=== PATIENT | female | born 2000 | race Caucasian/White ===

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

== ENCOUNTER 2022-06-22 05:55 | Observation (INO) | payer OTHER, SELFPAY ==
[2022-06-22] VITALS (7 sets, daily range): BP systolic 112–178; BP diastolic 56–110; PULSE 56–83; RESP 16–18; TEMP 36.3–37.4; O2SAT 96–100; BMI 19.2; BMI 20.3
--- NOTE | 2022-06-22 06:11 | ED.VIS.GI ---
HPI <Dr. Almas Payan MD - Last Filed: 06/22/22 07:06> HPI - GI History of Present Illness Chief Complaint: Nausea/Vomiting/Diarrhea Informant: patient and family Abdominal Pain/Flank Pain Onset: Days (several) Context: Gradual Onset Timing: Continuous Quality: Aching Location: - (pelvis, more on right) Current Severity: Moderate Maximum Severity: Moderate Worsened by: Nothing Relieved by: Nothing Nausea/Vomiting/Emesis GI Symptom: Positive for Nausea and Vomiting Onset: Today Quality: Positive for Nonbilious; Negative for Blood streaks, Coffee ground or Hematemesis Severity: Severe Diarrhea/Melena/Hematochezia GI Symptom: Positive for Diarrhea; Negative for Melena or Hematochezia Onset: Days (couple) Stool Quality: Positive for Loose Severity: Moderate Associated Symptoms Associated Symptoms: Negative for Dysuria, Frequency, Hematuria or Urgency Narrative Narrative: Patient presents saying that she is having pelvic pain, vomiting, and diarrhea because I am ovulating. She states this has been going on for years, every month. It has been more severe since October. She has seen her primary doctor about this. Recently she is having another episode, and states this morning since she has been vomiting, all of her symptoms are more severe than usual but they are otherwise the same. She gets these episodes in between her menstrual cycles every single month. She occasionally gets some nosebleeds when she is vomiting, but nothing this morning, and she denies any hematemesis or hematochezia otherwise. She denies any fevers or chills. No urinary symptoms, no discharge, no risk of STI - is monogamous w/ her boyfriend. She states when she gets these painful episodes, they tend to alternate sides, right now it is more prominent on the right. Discomfort radiates into her low back. [facility] <Dr. Almas Payan MD - Last Filed: 06/22/22 07:06> [facility] Medical History Menstrual cycle problem Home Medications epinephrine 0.15 mg/0.15 mL auto-injector (for 33 to 66 lb patients) 0.15 mg (0.15 mL) IM X1 ##2 03/15/14 [Rx Last Taken Unknown] ondansetron 4 mg disintegrating tablet 4 mg PO Q6H PRN nausea and vomiting #10 tabs 12/31/21 [Rx Last Taken Unknown] Allergy/AdvReac Type Severity Reaction Status Date / Time No Known Allergies Allergy Verified 06/22/22 06:00 Social History Smoking Status: Never smoker ROS <Dr. Almas Payan MD - Last Filed: 06/22/22 07:06> ROS ED Constitutional Constitutional ED: Denies chills or fever(s) Eyes Eyes: Denies change in vision or diplopia ENT ENT ED: Denies rhinorrhea or sore throat Cardiovascular Cardiovascular: Denies chest pain or palpitations Respiratory/Chest Respiratory/Chest: Denies cough or dyspnea Gastrointestinal Gastrointestinal: Reports as per HPI, abdominal pain, diarrhea, nausea and vomiting Genitourinary Genitourinary ED: Denies dysuria or hematuria Musculoskeletal Musculoskeletal: Reports back pain; Denies neck pain Integumentary Denies abscess or rash Neurologic Neurologic: Denies headache(s), paresthesias or weakness Psychiatric Psychiatric: Reports anxiety; Denies suicidal thoughts EXAM <Dr. Almas Payan MD - Last Filed: 06/22/22 07:06> Physical Exam Const Vital Signs: 06/22/22 05:56 06/22/22 08:13 06/22/22 10:19 Temperature 97.3 F L Temperature Source Temporal Pulse Rate 83 66 Respiratory Rate 18 18 16 Blood Pressure 178/110 H 114/62 Blood Pressure Mean 132 79 Pulse Ox 100 100 Oxygen Delivery Method Room Air Room Air 06/22/22 12:35 Temperature Temperature Source Pulse Rate 67 Respiratory Rate 18 Blood Pressure 136/64 H Blood Pressure Mean 88 Pulse Ox 96 Oxygen Delivery Method Room Air Positive well nourished and well developed Constitutional Narrative: uncomfortable General Appearance ED: well developed HEENT Reports moist mucous membranes normocephalic and atraumatic Eyes PERRL and EOMs intact bilaterally Neck full ROM and supple Resp normal respiratory effort and clear to auscultation bilaterally Cardio regular rate, regular rhythm and no murmurs Rate: Negative for tachycardic GI non-distended GI Narrative: Diffusely tender Auscultation: normoactive bowel sounds Palpation: soft; Negative for guarding or rebound tenderness present Back/Spine no CVA tenderness General Back: other FROM Extremity normal to inspection General Extremety ED: Negative for edema, pulses abnormal or tenderness General Extremity: Negative for edema or pulses abnormal Neuro oriented x3, CN's II-XII intact bilaterally, no sensory deficits noted and gait normal Sensorium / Orientation: awake and alert Motor Exam: strength 5/5 throughout Psych thought process normal Psych Narrative: Very anxious and somewhat agitated Skin no rashes or lesions noted and no wounds <Dr. Migel Rivas DO - Last Filed: 06/22/22 14:40> Physical Exam Const Vital Signs: 06/22/22 05:56 06/22/22 08:13 06/22/22 10:19 Temperature 97.3 F L Temperature Source Temporal Pulse Rate 83 66 Respiratory Rate 18 18 16 Blood Pressure 178/110 H 114/62 Blood Pressure Mean 132 79 Pulse Ox 100 100 Oxygen Delivery Method Room Air Room Air 06/22/22 12:35 Temperature Temperature Source Pulse Rate 67 Respiratory Rate 18 Blood Pressure 136/64 H Blood Pressure Mean 88 Pulse Ox 96 Oxygen Delivery Method Room Air MDM <Dr. Almas Payan MD - Last Filed: 06/22/22 07:06> MDM MDM Narrative Medical decision making narrative: Initially started by giving the patient IV fluids, Reglan, and Toradol in addition to obtaining labs and a serum and reevaluating her. She has a significant leukocytosis at 21. Differential here includes demargination due to stress and discomfort, especially given this has been a chronically recurring problem, but also the possibility of ovarian torsion or tubo-ovarian abscess, and less likely, appendicitis. I think she should have an ultrasound first. Her is negative. PID in differential but thought to be less likely, we will send a GC/Chlam. She presents just prior to the morning shift, and when ultrasound gets here, a transvaginal ultrasound will be obtained. She is doing a little better after the medications. Lab Data Attestation: I reviewed the patient's lab results. Labs: Laboratory Results - last 24 hr 06/22/22 06/22/22 06/22/22 06:10 06:10 06:10 WBC 21.0 H RBC 4.51 Hgb 12.8 Hct 38.5 MCV 85.4 MCH 28.4 MCHC 33.2 RDW Std Deviation 38.0 RDW Coeff of Eugenio 12.3 Plt Count 381 MPV 8.9 Immature Gran % (Auto) 0.500 Neut % (Auto) 69.2 Lymph % (Auto) 19.4 [place] % (Auto) 5.9 Eos % (Auto) 4.5 Baso % (Auto) 0.5 Absolute Neuts (auto) 14.6 H Absolute Lymphs (auto) 4.07 Nucleated RBC % 0 Sodium 137 Potassium 3.3 L Chloride 103 Carbon Dioxide 20.0 L Anion Gap 14 BUN 14 Creatinine 0.92 Estim Creat Clear Calc 69.41 Est GFR (MDRD) Af Amer 100 Est GFR (MDRD) Non-Af 83 BUN/Creatinine Ratio 15.2 Glucose 180 H Calcium 9.4 Total Bilirubin Direct Bilirubin AST ALT Alkaline Phosphatase Total Protein Albumin Globulin Serum , Qual NEGATIVE Urine Color Urine Clarity Urine pH Ur Specific [place] Urine Protein Urine Glucose (UA) Urine Ketones Urine Occult Blood Urine Nitrite Urine Bilirubin Urine Urobilinogen Ur Leukocyte Esterase Urine RBC Urine WBC Ur Squamous Epith Cells Urine Bacteria Urine Mucus Chlamydia DNA (ALFREDO) N.gonorrhoeae DNA (ALFREDO) 06/22/22 06/22/22 06/22/22 06:10 10:00 10:00 WBC RBC Hgb Hct MCV MCH MCHC RDW Std Deviation RDW Coeff of Eugenio Plt Count MPV Immature Gran % (Auto) Neut % (Auto) Lymph % (Auto) [place] % (Auto) Eos % (Auto) Baso % (Auto) Absolute Neuts (auto) Absolute Lymphs (auto) Nucleated RBC % Sodium Potassium Chloride Carbon Dioxide Anion Gap BUN Creatinine Estim Creat Clear Calc Est GFR (MDRD) Af Amer Est GFR (MDRD) Non-Af BUN/Creatinine Ratio Glucose Calcium Total Bilirubin 0.80 Direct Bilirubin 0.18 AST 12 L ALT 15 Alkaline Phosphatase 53 Total Protein 7.9 Albumin 4.5 Globulin 3.4 Serum , Qual Urine Color Yellow Urine Clarity Clear Urine pH 7.0 Ur Specific [place] 1.010 Urine Protein 30 H Urine Glucose (UA) Normal Urine Ketones 150 A* Urine Occult Blood 10 H Urine Nitrite Negative Urine Bilirubin Negative Urine Urobilinogen 1 H Ur Leukocyte Esterase Negative Urine RBC 0 SEEN Urine WBC 0 SEEN Ur Squamous Epith Cells 0-5 SEEN Urine Bacteria 0 SEEN Urine Mucus 0 SEEN Chlamydia DNA (ALFREDO) Cancelled N.gonorrhoeae DNA (ALFREDO) Cancelled Radiography Diagnostic Testing: Clinical Impression(s) from Imaging Studies Transvaginal US 06/22/22 06:31 IMPRESSION: Bilateral peripherally located subcentimeter ovarian cysts, in the appropriate clinical setting may reflect polycystic ovarian disease. Electronically Signed: Maday Antoine MD at 8:10 EDT , Abdomen/Pelvis CT 06/22/22 07:46 IMPRESSION: Pericholecystic fluid, may be secondary to recent intravenous rehydration, however cannot exclude cholecystitis recommend right upper quadrant ultrasound for further evaluation. Electronically Signed: Maday Antoine MD at 9:50 EDT , Gallbladder Ultrasound 06/22/22 09:56 IMPRESSION: Gallbladder wall thickening and pericholecystic fluid, may be reactive however cannot exclude cholecystitis. Electronically Signed: Maday Antoine MD at 11:09 EDT , <Dr. Migel Rivas, DO - Last Filed: 06/22/22 14:40> [facility] MDM Narrative Medical decision making narrative: Initially started by giving the patient IV fluids, Reglan, and Toradol in addition to obtaining labs and a serum and reevaluating her. She has a significant leukocytosis at 21. Differential here includes demargination due to stress and discomfort, especially given this has been a chronically recurring problem, but also the possibility of ovarian torsion or tubo-ovarian abscess, and less likely, appendicitis. I think she should have an ultrasound first. Her is negative. PID in differential but thought to be less likely, we will send a GC/Chlam. She presents just prior to the morning shift, and when ultrasound gets here, a transvaginal ultrasound will be obtained. She is doing a little better after the medications. Care of patient turned over to me awaiting ultrasound results of pelvis. This was read by radiology as free fluid within the pelvis and small cysts in both ovaries which could be related to PCOS. Patient continued to complain of pain and nausea especially at the right lower quadrant therefore CT scan of the abdomen pelvis was ordered which showed pericholecystic fluid and a thickened gallbladder wall as well as fluid in the pelvis. Radiology recommended ultrasound of the gallbladder which was performed. Radiology read this as thickened gallbladder wall with pericholecystic fluid but no gallstones and no dilated bile ducts. I did do a pelvic exam on the patient and she had some creamy white discharge and we did send off GC and chlamydia as well as a wet prep. I had patient evaluated by general surgery Dr. Thomas who did not believe that patient's exam and presentation was consistent with cholecystitis. LFTs were normal. Patient still pending GC and chlamydia results. Patient does have remote history of chlamydia at the beginning of the year. Case was discussed with PLACEMENT COORDINATOR on-call as patient continues to have intractable nausea and vomiting. Patient was started on Rocephin and Zithromax IV. At this point I suspect possibly PID as the etiology of her symptoms. Patient will be admitted for IV antibiotics and symptom control. Patient seen by Dr. Julian in the emergency department. Lab Data Labs: Laboratory Results - last 24 hr 06/22/22 06/22/22 06/22/22 06:10 06:10 06:10 WBC 21.0 H RBC 4.51 Hgb 12.8 Hct 38.5 MCV 85.4 MCH 28.4 MCHC 33.2 RDW Std Deviation 38.0 RDW Coeff of Eugenio 12.3 Plt Count 381 MPV 8.9 Immature Gran % (Auto) 0.500 Neut % (Auto) 69.2 Lymph % (Auto) 19.4 [place] % (Auto) 5.9 Eos % (Auto) 4.5 Baso % (Auto) 0.5 Absolute Neuts (auto) 14.6 H Absolute Lymphs (auto) 4.07 Nucleated RBC % 0 Sodium 137 Potassium 3.3 L Chloride 103 Carbon Dioxide 20.0 L Anion Gap 14 BUN 14 Creatinine 0.92 Estim Creat Clear Calc 69.41 Est GFR (MDRD) Af Amer 100 Est GFR (MDRD) Non-Af 83 BUN/Creatinine Ratio 15.2 Glucose 180 H Calcium 9.4 Total Bilirubin Direct Bilirubin AST ALT Alkaline Phosphatase Total Protein Albumin Globulin Serum , Qual NEGATIVE Urine Color Urine Clarity Urine pH Ur Specific [place] Urine Protein Urine Glucose (UA) Urine Ketones Urine Occult Blood Urine Nitrite Urine Bilirubin Urine Urobilinogen Ur Leukocyte Esterase Urine RBC Urine WBC Ur Squamous Epith Cells Urine Bacteria Urine Mucus Chlamydia DNA (ALFREDO) N.gonorrhoeae DNA (ALFREDO) 06/22/22 06/22/22 06/22/22 06:10 10:00 10:00 WBC RBC Hgb Hct MCV MCH MCHC RDW Std Deviation RDW Coeff of Eugenio Plt Count MPV Immature Gran % (Auto) Neut % (Auto) Lymph % (Auto) [place] % (Auto) Eos % (Auto) Baso % (Auto) Absolute Neuts (auto) Absolute Lymphs (auto) Nucleated RBC % Sodium Potassium Chloride Carbon Dioxide Anion Gap BUN Creatinine Estim Creat Clear Calc Est GFR (MDRD) Af Amer Est GFR (MDRD) Non-Af BUN/Creatinine Ratio Glucose Calcium Total Bilirubin 0.80 Direct Bilirubin 0.18 AST 12 L ALT 15 Alkaline Phosphatase 53 Total Protein 7.9 Albumin 4.5 Globulin 3.4 Serum , Qual Urine Color Yellow Urine Clarity Clear Urine pH 7.0 Ur Specific [place] 1.010 Urine Protein 30 H Urine Glucose (UA) Normal Urine Ketones 150 A* Urine Occult Blood 10 H Urine Nitrite Negative Urine Bilirubin Negative Urine Urobilinogen 1 H Ur Leukocyte Esterase Negative Urine RBC 0 SEEN Urine WBC 0 SEEN Ur Squamous Epith Cells 0-5 SEEN Urine Bacteria 0 SEEN Urine Mucus 0 SEEN Chlamydia DNA (AL[place]EDO) Cancelled N.gonorrhoeae DNA (ALFREDO) Cancelled Radiography Diagnostic Testing: Clinical Impression(s) from Imaging Studies Transvaginal US 06/22/22 06:31 IMPRESSION: Bilateral peripherally located subcentimeter ovarian cysts, in the appropriate clinical setting may reflect polycystic ovarian disease. Electronically Signed: Maday Antoine MD at 8:10 EDT , Abdomen/Pelvis CT 06/22/22 07:46 IMPRESSION: Pericholecystic fluid, may be secondary to recent intravenous rehydration, however cannot exclude cholecystitis recommend right upper quadrant ultrasound for further evaluation. Electronically Signed: Maday Antoine MD at 9:50 EDT , Gallbladder Ultrasound 06/22/22 09:56 IMPRESSION: Gallbladder wall thickening and pericholecystic fluid, may be reactive however cannot exclude cholecystitis. Electronically Signed: Maday Antoine MD at 11:09 EDT , Discharge Plan Triage Chief Complaint: Nausea/Vomiting/Diarrhea Other Complaint: Abd Pain ED Provider: Almas Payan Dx/Rx/DC Orders Clinical Impression: Abdominal pain, Intractable vomiting with nausea Prescriptions: No Action epinephrine 0.15 MG syringe 0.15 mg IM X1 Qty: 2 3RF Rx Instructions: Use if child stung by wasp, bee or yellow jacket. Must carry at all times. ondansetron 4 mg tablet,disintegrating 4 mg PO Q6H PRN (Reason: nausea and vomiting) Qty: 10 0RF Primary Care Provider: Care Physician,No Primary Referrals: Jamilah Madden MD [Non-Staff] - Disposition Disposition: Acute Care Hospital [facility] [place] [facility]
[2022-06-22] MEDS: 0.9% Normal Saline 1,000 ML 1000 ML IV (06:17)
[2022-06-22] MEDS: Metoclopramide 10 MG/2 ML Vial 5 MG IV (06:17)
[2022-06-22] MEDS: Ketorolac 30 MG/ML Syringe IV (06:19)
[2022-06-22 06:27] LABS: Absolute Lymphocyte Count 4.07 X10^3/uL (0.83-4.51); Absolute Neutrophil Count 14.6 X10^3/uL (2.0-7.7); Basophil% 0.5 % (0-1); Eosinophil# 0.94 X10^3/uL; Eosinophils% 4.5 % (0-5); Hematocrit 38.5 % (37-47); Hemoglobin 12.8 g/dL (12.0-15.0); Lymphocyte # 4.07 X10^3/ul (0.83-4.51); Lymphocyte % 19.4 % (19-41); Mean Corp Hgb Conc 33.2 g/dL (32-36); Mean Corpuscular Hgb 28.4 pg (27.0-32.0); Mean Corpuscular Volume 85.4 fL (81-99); Mean Platelet Vol. 8.9 fl (6.2-12.0); Monocyte# 1.24 X10^3/uL; Monocyte% 5.9 % (0-10); NRBC Flagged by Analyzer 0 % (0-5); Neutrophil # 14.55 X10^3/uL (2.7-7.7); Neutrophil % 69.2 % (47-70); Platelet Count 381 K/mm3 (150-450); RBC Distribution Width CV 12.3 % (11.6-14.6); Red Blood Count 4.51 M/mm3 (4.2-5.4)
--- NOTE | 2022-06-22 06:31 | US_ITS ---
STUDY: ULTRASOUND TRANSVAGINAL CLINICAL: Female, 21 years old. R pelvic pain, eval for torsion TECHNIQUE: Transvaginal COMPARISON: None. FINDINGS: Normal uterine size measuring 7.9 cm in maximal craniocaudal dimension. There are no myometrial masses. Normal endometrial thickness measuring 10.3 mm. There are no endometrial masses, and there is no fluid in the endometrial cavity. Normal uterine cervix. Normal right ovary, measuring 3.8 x 2.6 x 4.1 cm. There are several peripherally located subcentimeter cysts. Normal left ovary, measuring 3.5 x 3.9 x 2.5 cm. There are multiple subcentimeter peripherally located cysts. There is free fluid in the pelvis. US/Transvaginal Non- IMPRESSION: Bilateral peripherally located subcentimeter ovarian cysts, in the appropriate clinical setting may reflect polycystic ovarian disease. Electronically Signed: Maday Antoine MD at 8:10 EDT ,
[2022-06-22 06:44] LABS: Anion Gap 14 (5-15); BUN 14 mg/dL (7-18); BUN/Creat Ratio 15.2 RATIO (10-20); Calcium,Total 9.4 mg/dL (8.5-10.1); Chloride 103 mmol/L (98-107); Creatinine, Serum 0.92 mg/dL (0.55-1.02); EST Glomerular Filtration Rate 83 mL/min (>60); Est Glom Filt Rate - Afr Amer 100 mL/min (>60); Estimated Creatinine Clearance 69.41 ml/min; Glucose 180 mg/dL (74-106); Potassium 3.3 mmol/L (3.5-5.1); Sodium Level 137 mmol/L (136-145)
[2022-06-22 07:00] LABS: Internal QC Validated? YES +Cl - CLEAR BKGD; Pregnancy, Serum, hCG Quali. NEGATIVE Negative
--- NOTE | 2022-06-22 07:46 | CT_ITS ---
STUDY: CT ABDOMEN AND PELVIS WITH CONTRAST REASON FOR EXAM: Female, 21 years old. Abdominal pain RADIATION DOSAGE (If Supplied By Facility): CTDIvol = ( 14.11 ) mGy, DLP = ( 254.33 ) mGycm TECHNIQUE: Transaxial images were obtained from the dome of the diaphragm to the symphysis pubis without oral contrast. Oral and amp; IV Gastrografin and amp; 100mL Isovue-300 was administered. Sagittal and coronal images were reconstructed. Individualized dose optimization techniques were used for this CT. COMPARISON: Pelvic ultrasound dated 06/22/2022 FINDINGS: The visualized lung bases are unremarkable. The visualized portions of the heart are within normal limits. There is periportal edema. The gallbladder is incompletely distended. There is pericholecystic fluid. Normal spleen. Normal pancreas. Normal bilateral adrenal glands. There is a too small to characterize low-attenuation focus within the right kidney which may reflect a cyst. Normal left kidney. Normal visualized stomach. Normal small intestine. Normal colon. There is non-visualization of the appendix. Normal abdominal aorta. Normal inferior vena cava. Normal retroperitoneum. There is free fluid within the pelvis which may be physiologic. Normal urinary bladder. Normal abdominal wall. Normal osseous structures. CT/Abdomen/Pelvis WITH Contrast IMPRESSION: Pericholecystic fluid, may be secondary to recent intravenous rehydration, however cannot exclude cholecystitis recommend right upper quadrant ultrasound for further evaluation. Electronically Signed: Maday Antoine MD at 9:50 EDT ,
[2022-06-22] MEDS: Ondansetron 4 MG/2 ML Vial IV (08:10)
--- NOTE | 2022-06-22 09:56 | US_ITS ---
STUDY: ABDOMINAL ULTRASOUND - RIGHT UPPER QUADRANT REASON FOR VISIT: Female, 21 years old abdominal pain TECHNIQUE: Ultrasound evaluation of the right upper quadrant was performed with real-time and static grover-scale imaging. TECHNICAL QUALITY: Adequate. COMPARISON: CT dated 06/22/2022 FINDINGS: Liver: The liver measures 13.9 cm. There is normal echogenicity of the liver. The bile ducts are within normal limits. There is hepatic color flow. The direction of portal flow is hepatopetal. There is no demonstrated mass lesion. Gallbladder: The gallbladder is incompletely distended. The gallbladder wall measures 5.9 mm. There is a negative sonographic Santos''s sign. There is pericholecystic fluid. There are no gallstones. Common Bile Duct (C.B.D.): The common bile duct measures 3.5 mm. Pancreas: Normal size of the head, body and tail of the pancreas. There is normal echogenicity of the pancreas. There is no demonstrated pancreatic mass or cyst. Right Kidney: Normal size of the right kidney. The right kidney measures 10.9 cm in length. Normal renal cortex. There is no demonstrated renal mass or cyst. There is no right hydronephrosis. US/Gallbladder IMPRESSION: Gallbladder wall thickening and pericholecystic fluid, may be reactive however cannot exclude cholecystitis. Electronically Signed: Maday Antoine MD at 11:09 EDT ,
[2022-06-22 10:11] LABS: Bacteria 0 SEEN /hpf (None Seen); Mucous, Urine 0 SEEN /hpf (<or=2+); Red Blood Cells-Urine 0 SEEN /hpf (0-5); White Blood Cells 0 SEEN /hpf (0-5)
[2022-06-22 10:12] LABS: Glucose, Dipstick Normal (Normal); Leukocyte Esterase-Dipstick Negative /ul (Negative); Nitrite-Dipstick Negative (Negative); Occult Blood-Urine 10 /ul (Negative); Protein-Dipstick 30 mg/dl (Negative); Urine Bilirubin Dipstick Negative (Negative); Urine Clarity Clear (Clear); Urine Urobilinogen 1 mg/dl (Normal)
[2022-06-22 10:31] LABS: Ketone-Dipstick 150 mg/dl (Negative)
[2022-06-22 10:32] LABS: Color, Urine Yellow (Yellow)
[2022-06-22 11:11] LABS: Squamous Epithelial Cells - UA 0-5 SEEN /hpf (5-10)
[2022-06-22] MEDS: Ceftriaxone 1 GM/50 ML BAG IV (11:35)
--- NOTE | 2022-06-22 12:57 | EX.PCM.CON.S ---
Assessment & Plan Assessment/Plan (1) Abdominal pain: (2) Thickening of wall of gallbladder with pericholecystic fluid: PLAN: Plan Did review CT abdomen pelvis as well as gallbladder ultrasound. Patient symptoms do not fit with gallbladder disease. Discussed with patient and her mom that we could get a HIDA scan to officially rule it out however patient has been having no issues with eating prior to this morning and denies any right upper quadrant pain after eating fatty or greasy foods which she has had within the last week. Patient currently says her pain is improving she only had Toradol upon coming in and per patient and mother her previous episodes are similar and they have resolved with antibiotics and currently her pain is 4/10. No plans for any acute surgical intervention. Patient's GC and Chlamydia are pending. Patient is currently getting antibiotics for this. Jerica Thomas M.D. Pager: [phone] [facility] [address] [place] [address], [facility], [address] [place] [id number] Office: [phone] HPI Consult Data Date of Consult: 06/23/22 HPI Narrative HPI Narrative: AMANDA VAZQUEZ, is a 21 F who presents to the ER due to 2 mid abdominal pain which started at 530 this morning. Patient states for 2 weeks previous he has had abdominal pain rates it a 6/10 at that time this morning was a 10/10. Patient is also accompanied by her mother. States she had a hamburger last night and she has had previously been tolerating diet without any issues denies any nausea or vomiting other than this morning. Patient is sexually active did have some vaginal creamish discharge per ED waiting on G/C. Mom and patient report having these episodes about 3-4 times over the past year previously she was diagnosed with a UTI and would improve with antibiotics and some Zofran and she states this episode is similar. Patient did have sex the day before yesterday with her boyfriend-patient denies any burning with urination or vaginal discharge. CT abdomen pelvis was done which showed some free fluid in the pelvis as well as some near the gallbladder recommended ultrasound. Ultrasound not show any gallstones called a thickened gallbladder wall And pericholecystic fluid but said it may be reactive but cannot rule out cholecystitis. Patient white count of 21 with a left shift, LFTs are currently pending?(addendum: LFTs within normal limits), patient's UA did not show any obvious UTI [facility] Medical History Menstrual cycle problem Home Medications epinephrine 0.15 mg/0.15 mL auto-injector (for 33 to 66 lb patients) 0.15 mg (0.15 mL) IM X1 ##2 03/15/14 [Rx Last Taken Unknown] ondansetron 4 mg disintegrating tablet 4 mg PO Q6H PRN nausea and vomiting #10 tabs 12/31/21 [Rx Last Taken Unknown] Allergy/AdvReac Type Severity Reaction Status Date / Time No Known Allergies Allergy Verified 06/22/22 06:00 Social History Smoking Status: Current every day smoker tobacco type: e-cigarettes ROS Constitutional Constitutional: Reports anorexia; Denies fever(s) Cardiovascular Cardiovascular: Denies chest pain Respiratory/Chest Respiratory/Chest: Denies cough Gastrointestinal Gastrointestinal: Reports abdominal pain, nausea and vomiting; Denies constipation Genitourinary Genitourinary: Denies dysuria Integumentary Integumentary: Denies jaundice Neurologic Neurologic: Denies weakness Physical Exam Const alert, oriented x3 and no apparent distress HEENT normocephalic and head/scalp atraumatic Resp normal respiratory effort Cardio regular rate GI soft to palpation; Negative for non-distended Palpation: tender epigastric and periumbilical; Negative for guarding Extremity no clubbing, cyanosis or edema Neuro CN's II-XII intact bilaterally Psych mental status grossly normal Lab / Micro Data Result Diagrams: 06/23/22 06:09 06/23/22 06:09 Labs: Laboratory Results - last 24 hr 06/22/22 06:10: WBC 21.0 H, RBC 4.51, Hgb 12.8, Hct 38.5, MCV 85.4, MCH 28.4, MCHC 33.2, RDW Std Deviation 38.0, RDW Coeff of Eugenio 12.3, Plt Count 381, MPV 8.9, Immature Gran % (Auto) 0.500, Neut % (Auto) 69.2, Lymph % (Auto) 19.4, [place] % (Auto) 5.9, Eos % (Auto) 4.5, Baso % (Auto) 0.5, Absolute Neuts (auto) 14.6 H, Absolute Lymphs (auto) 4.07, Nucleated RBC % 0 06/22/22 06:10: Sodium 137, Potassium 3.3 L, Chloride 103, Carbon Dioxide 20.0 L, Anion Gap 14, BUN 14, Creatinine 0.92, Estim Creat Clear Calc 69.41, Est GFR (MDRD) Af Amer 100, Est GFR (MDRD) Non-Af 83, BUN/Creatinine Ratio 15.2, Glucose 180 H, Calcium 9.4 06/22/22 06:10: Serum , Qual NEGATIVE 06/22/22 10:00: Urine Color Yellow, Urine Clarity Clear, Urine pH 7.0, Ur Specific [place] 1.010, Urine Protein 30 H, Urine Glucose (UA) Normal, Urine Ketones 150 A*, Urine Occult Blood 10 H, Urine Nitrite Negative, Urine Bilirubin Negative, Urine Urobilinogen 1 H, Ur Leukocyte Esterase Negative, Urine RBC 0 SEEN, Urine WBC 0 SEEN, Ur Squamous Epith Cells 0-5 SEEN, Urine Bacteria 0 SEEN, Urine Mucus 0 SEEN Micro: Microbiology 06/22/22 12:00 Interface Orders Wet Prep - Final Radiology Impression Transvaginal US 06/22/22 06:31 IMPRESSION: Bilateral peripherally located subcentimeter ovarian cysts, in the appropriate clinical setting may reflect polycystic ovarian disease. Electronically Signed: Maday Antoine MD at 8:10 EDT Reading Location ID and State: [facility] / [place] Tel , Service support , Abdomen/Pelvis CT 06/22/22 07:46 IMPRESSION: Pericholecystic fluid, may be secondary to recent intravenous rehydration, however cannot exclude cholecystitis recommend right upper quadrant ultrasound for further evaluation. Electronically Signed: Maday Antoine MD at 9:50 EDT , Gallbladder Ultrasound 06/22/22 09:56 IMPRESSION: Gallbladder wall thickening and pericholecystic fluid, may be reactive however cannot exclude cholecystitis. Electronically Signed: Maday Antoine MD at 11:09 EDT , Charges/Coding Visit Charges Inpatient E&M: 17572 Init Hosp L3
[2022-06-22 13:24] LABS: AST(SGOT) 12 U/L (15-37); Alanine Aminotransfer ALT/SGPT 15 U/L (13-56); Albumin, Serum 4.5 g/dL (3.2-5.0); Alkaline Phosphatase 53 U/L (45-117); Bilirubin, Direct 0.18 mg/dL (0.00-0.30); Globulin 3.4 g/dL (2.2-4.2); Protein, Total 7.9 g/dL (6.4-8.2)
--- NOTE | 2022-06-22 14:40 | NURSING ---
MED SURG OBS MARCHOMERO ABD PAIN, INTRACTABLE NAUSEA, VOMITING
--- NOTE | 2022-06-22 14:43 | PCM.HP.STD ---
HPI - General HPI Narrative AMANDA VAZQUEZ, is a 21 F who presents with nausea vomiting and diarrhea for the past day. She has abdominal pain and upon CT scan and pelvic ultrasound has free fluid in the cul-de-sac, thickening around the gallbladder and leukocytosis of 21,000. Patient is sexually active and pelvic cultures are pending. She is having vaginal discharge and did not have cervical motion tenderness on exam but clinically there is a suspicion for PID. She is status post general surgery consult for gallbladder thickening which was not felt to be cholecystitis and unlikely to be the cause of her current symptoms it is felt per the surgeon. Patient states that she has felt warm but denies any known fever. Patient has had some refractory nausea and persistent pain. She does admit to daily marijuana use up to a bowl a day regularly and has not used in the last day and a half. She denies any other drug use. She admits to only 1 sexual partner at this time. [facility] Medical History Menstrual cycle problem Home Medications epinephrine 0.15 mg/0.15 mL auto-injector (for 33 to 66 lb patients) 0.15 mg (0.15 mL) IM X1 ##2 03/15/14 [Rx Last Taken Unknown] ondansetron 4 mg disintegrating tablet 4 mg PO Q6H PRN nausea and vomiting #10 tabs 12/31/21 [Rx Last Taken Unknown] Allergy/AdvReac Type Severity Reaction Status Date / Time No Known Allergies Allergy Verified 06/22/22 06:00 Social History Smoking Status: Never smoker ROS Review of Systems ROS Unobtainable: due to mental status and other Constitutional Constitutional: Reports systems reviewed and no addt'l complaints, except as documented, fatigue, malaise and weakness; Denies as per HPI, change in weight, fever(s) or other Eyes Eyes: Reports systems reviewed and no addt'l complaints, except as documented; Denies as per HPI, change in vision or other ENT HEENT: Reports systems reviewed and no addt'l complaints, except as documented Respiratory/Chest Respiratory/Chest: Reports systems reviewed and no addt'l complaints, except as documented Gastrointestinal Gastrointestinal: Reports systems reviewed and no addt'l complaints, except as documented and as per HPI Genitourinary Genitourinary: Reports as per HPI Musculoskeletal Musculoskeletal: Reports systems reviewed and no addt'l complaints, except as documented Neurologic Neurologic: Reports systems reviewed and no addt'l complaints, except as documented Psychiatric Psychiatric: Reports systems reviewed and no addt'l complaints, except as documented Endocrine Endocrinology: Reports systems reviewed and no addt'l complaints, except as documented Hematologic/Lymphatic Hematologic/Lymphatic: Reports systems reviewed and no addt'l complaints, except as documented Vital Signs Vital Signs Vital Signs: 06/22/22 05:56 06/22/22 08:13 06/22/22 10:19 Temperature 97.3 F L Temperature Source Temporal Pulse Rate 83 66 Respiratory Rate 18 18 16 Blood Pressure 178/110 H 114/62 Blood Pressure Mean 132 79 Pulse Ox 100 100 Oxygen Delivery Method Room Air Room Air 06/22/22 12:35 Temperature Temperature Source Pulse Rate 67 Respiratory Rate 18 Blood Pressure 136/64 H Blood Pressure Mean 88 Pulse Ox 96 Oxygen Delivery Method Room Air Weight Weight: 98 lb 8.746 oz Body Mass Index (BMI) 19.2 Physical Exam Const alert, oriented x3 and no apparent distress HEENT normocephalic Head and Scalp: atraumatic Eyes EOMs intact bilaterally and conjunctivae normal Neck full ROM, no lymphadenopathy, supple and thyroid normal General: trachea midline Lymph Lymphatic: no lymphadenopathy noted Resp normal respiratory effort, no retractions, no use of accessory muscles and clear to auscultation bilaterally Cardio regular rhythm GI normal to inspection, nondistended, normoactive bowel sounds, soft to palpation, non-distended and no masses Inspection: Negative for abdominal distention Palpation: tender other (generalized no rebound) Back/Spine no CVA tenderness Extremity normal to inspection Skin no rashes or lesions noted Neuro moves all extremities and deep tendon reflexes 2+ bilaterally Psych mental status grossly normal Results Lab / Micro Data Result Diagrams: 06/22/22 06:10 06/22/22 06:10 Labs: Laboratory Results - last 24 hr 06/22/22 06:10: WBC 21.0 H, RBC 4.51, Hgb 12.8, Hct 38.5, MCV 85.4, MCH 28.4, MCHC 33.2, RDW Std Deviation 38.0, RDW Coeff of Eugenio 12.3, Plt Count 381, MPV 8.9, Immature Gran % (Auto) 0.500, Neut % (Auto) 69.2, Lymph % (Auto) 19.4, [place] % (Auto) 5.9, Eos % (Auto) 4.5, Baso % (Auto) 0.5, Absolute Neuts (auto) 14.6 H, Absolute Lymphs (auto) 4.07, Nucleated RBC % 0 06/22/22 06:10: Sodium 137, Potassium 3.3 L, Chloride 103, Carbon Dioxide 20.0 L, Anion Gap 14, BUN 14, Creatinine 0.92, Estim Creat Clear Calc 69.41, Est GFR (MDRD) Af Amer 100, Est GFR (MDRD) Non-Af 83, BUN/Creatinine Ratio 15.2, Glucose 180 H, Calcium 9.4 06/22/22 06:10: Serum , Qual NEGATIVE 06/22/22 06:10: Total Bilirubin 0.80, Direct Bilirubin 0.18, AST 12 L, ALT 15, Alkaline Phosphatase 53, Total Protein 7.9, Albumin 4.5, Globulin 3.4 06/22/22 10:00: Urine Color Yellow, Urine Clarity Clear, Urine pH 7.0, Ur Specific [place] 1.010, Urine Protein 30 H, Urine Glucose (UA) Normal, Urine Ketones 150 A*, Urine Occult Blood 10 H, Urine Nitrite Negative, Urine Bilirubin Negative, Urine Urobilinogen 1 H, Ur Leukocyte Esterase Negative, Urine RBC 0 SEEN, Urine WBC 0 SEEN, Ur Squamous Epith Cells 0-5 SEEN, Urine Bacteria 0 SEEN, Urine Mucus 0 SEEN 06/22/22 10:00: Chlamydia DNA (ALFREDO) Cancelled, N.gonorrhoeae DNA (ALFREDO) Cancelled Micro: Microbiology 06/22/22 12:00 Interface Orders Wet Prep - Final Radiology Impression Transvaginal US 06/22/22 06:31 IMPRESSION: Bilateral peripherally located subcentimeter ovarian cysts, in the appropriate clinical setting may reflect polycystic ovarian disease. Electronically Signed: Maday Antoine MD at 8:10 EDT , Abdomen/Pelvis CT 06/22/22 07:46 IMPRESSION: Pericholecystic fluid, may be secondary to recent intravenous rehydration, however cannot exclude cholecystitis recommend right upper quadrant ultrasound for further evaluation. Electronically Signed: Maday Antoine MD at 9:50 EDT , Gallbladder Ultrasound 06/22/22 09:56 IMPRESSION: Gallbladder wall thickening and pericholecystic fluid, may be reactive however cannot exclude cholecystitis. Electronically Signed: Maday Antoine MD at 11:09 EDT , Assessment & Plan Assessment/Plan (1) Abdominal pain: (2) Intractable vomiting with nausea: (3) Thickening of wall of gallbladder with pericholecystic fluid: (4) PID (acute pelvic inflammatory disease): PLAN: Plan Admit for ceftriaxone 1 g every 24 hours and doxycycline 100 mg twice daily plus Flagyl 500 twice daily until tolerating p.o. and then will transition to oral therapy of doxycycline twice daily and Flagyl twice daily x14 days. Discussed marijuana use, discussed with ER physician recommend stool studies also due to diarrhea. If persistent symptoms not improved with IV antibiotics recommend GI consult.
[2022-06-22 15:40] LABS: Chlamydia Trachomatis by PCR Negative (Negative); Neisserai gonorrhoeae by PCR Negative (Negative); Probe Check PASS; Sample Adequacy Control PASS; Specimen Processing Control PASS
[2022-06-22] MEDS: KCL 20MEQ in 0.9% NS 20 MEQ/1,000 ML IV.SOLN. 125 MEQ IV (16:51)
[2022-06-22] MEDS: Doxycycline 100 MG CAPSULE PO ×2 (16:52→22:04)
[2022-06-22] MEDS: metroNIDAZOLE 500 MG Tablet PO (16:53)
[2022-06-23] MEDS: KCL 20MEQ in 0.9% NS 20 MEQ/1,000 ML IV.SOLN. 125 MEQ IV ×2 (00:18→09:21)
[2022-06-23 03:25] VITALS: BP 109/51; PULSE 68; RESP 16; TEMP 36.9; O2SAT 100
[2022-06-23 07:11] LABS: ALB/GLOB Ratio 1.2 RATIO (0.9-2.4); AST(SGOT) 8 U/L (15-37); Alanine Aminotransfer ALT/SGPT 15 U/L (13-56); Albumin, Serum 3.4 g/dL (3.2-5.0); Alkaline Phosphatase 41 U/L (45-117); Anion Gap 8 (5-15); BUN 7 mg/dL (7-18); BUN/Creat Ratio 13.9 RATIO (10-20); Calcium,Total 8.3 mg/dL (8.5-10.1); Chloride 109 mmol/L (98-107); EST Glomerular Filtration Rate 167 mL/min (>60); Est Glom Filt Rate - Afr Amer 201 mL/min (>60); Estimated Creatinine Clearance 129.99 ml/min; Globulin 2.8 g/dL (2.2-4.2); Glucose 80 mg/dL (74-106); Potassium 3.6 mmol/L (3.5-5.1); Protein, Total 6.2 g/dL (6.4-8.2); Sodium Level 138 mmol/L (136-145)
[2022-06-23 09:10] VITALS: BP 110/61; PULSE 70; RESP 16; TEMP 37; O2SAT 100
[2022-06-23] MEDS: Doxycycline 100 MG CAPSULE PO (09:21)
[2022-06-23] MEDS: metroNIDAZOLE 500 MG Tablet PO (09:21)
[2022-06-23] MEDS: Ceftriaxone 1 GM/50 mL Premix Q24 IV (09:22)
[2022-06-23 09:54] LABS: Absolute Lymphocyte Count 1.92 X10^3/uL (0.83-4.51); Absolute Neutrophil Count 8.4 X10^3/uL (2.0-7.7); Basophil# 0.04 X10^3/uL; Basophil% 0.4 % (0-1); Eosinophil# 0.11 X10^3/uL; Hematocrit 33.1 % (37-47); Hemoglobin 11.2 g/dL (12.0-15.0); Lymphocyte # 1.92 X10^3/ul (0.83-4.51); Lymphocyte % 16.9 % (19-41); Mean Corp Hgb Conc 33.8 g/dL (32-36); Mean Corpuscular Hgb 29.5 pg (27.0-32.0); Mean Corpuscular Volume 87.1 fL (81-99); Mean Platelet Vol. 9.7 fl (6.2-12.0); Monocyte# 0.85 X10^3/uL; Monocyte% 7.5 % (0-10); NRBC Flagged by Analyzer 0 % (0-5); Neutrophil # 8.38 X10^3/uL (2.7-7.7); Neutrophil % 73.8 % (47-70); Platelet Count 228 K/mm3 (150-450); RBC Distribution Width CV 12.7 % (11.6-14.6); RBC Distribution Width SD 40.3 fl (35.1-43.9); White Blood Count 11.4 K/mm3 (4.4-11.0)
--- NOTE | 2022-06-23 11:55 | PCM.PN.OB ---
Subjective Subjective no nausea or vomiting this morning tolerating po and oral meds Objective Data Objective Data Vital Signs: Vital Signs Temp Pulse Resp BP Pulse Ox O2 Del Method 98.6 F 70 16 110/61 100 Room Air 06/23/22 09:10 06/23/22 09:10 06/23/22 09:10 06/23/22 09:10 06/23/22 09:10 06/23/22 09:10 Oxygen Delivery Method Room Air Weight: 104 lb 4.8 oz Body Mass Index (BMI) 20.3 Intake & Output: Intake and Output for Last 24 Hours 06/21/22 06/22/22 06/23/22 23:59 23:59 23:59 Intake Total 1405 / 1405 Balance 1405 / 1405 Lab / Micro Data Result Diagrams: 06/23/22 06:09 06/23/22 06:09 Labs: Laboratory Results - last 24 hr 06/22/22 06:10: Total Bilirubin 0.80, Direct Bilirubin 0.18, AST 12 L, ALT 15, Alkaline Phosphatase 53, Total Protein 7.9, Albumin 4.5, Globulin 3.4 06/22/22 10:00: Chlamydia DNA (ALFREDO) Cancelled, N.gonorrhoeae DNA (ALFREDO) Cancelled 06/22/22 10:00: Chlam trachomat DNA PCR Negative, N.gonorrhoeae DNA (PCR) Negative 06/23/22 06:09: Sodium 138, Potassium 3.6, Chloride 109 H, Carbon Dioxide 21.0, Anion Gap 8, BUN 7, Creatinine 0.50 L, Estim Creat Clear Calc 129.99, Est GFR (MDRD) Af Amer 201, Est GFR (MDRD) Non-Af 167, BUN/Creatinine Ratio 13.9, Glucose 80, Calcium 8.3 L, Total Bilirubin 0.80, AST 8 L, ALT 15, Alkaline Phosphatase 41 L, Total Protein 6.2 L, Albumin 3.4, Globulin 2.8, Albumin/Globulin Ratio 1.2 06/23/22 06:09: WBC 11.4 H, RBC 3.80 L, Hgb 11.2 L, Hct 33.1 L, MCV 87.1, MCH 29.5, MCHC 33.8, RDW Std Deviation 40.3, RDW Coeff of Eugenio 12.7, Plt Count 228, MPV 9.7, Immature Gran % (Auto) 0.400, Neut % (Auto) 73.8 H, Lymph % (Auto) 16.9 L, [place] % (Auto) 7.5, Eos % (Auto) 1.0, Baso % (Auto) 0.4, Absolute Neuts (auto) 8.4 H, Absolute Lymphs (auto) 1.92, Nucleated RBC % 0 Micro: Microbiology 06/22/22 12:00 Interface Orders Wet Prep - Final ROS Review of Systems ROS Unobtainable: due to mental status and other Constitutional Constitutional: Reports systems reviewed and no addt'l complaints, except as documented; Denies as per HPI, fever(s) or other Eyes Eyes: Reports systems reviewed and no addt'l complaints, except as documented; Denies as per HPI, change in vision or other ENT HEENT: Reports systems reviewed and no addt'l complaints, except as documented Respiratory/Chest Respiratory/Chest: Reports systems reviewed and no addt'l complaints, except as documented Gastrointestinal Gastrointestinal: Reports systems reviewed and no addt'l complaints, except as documented and as per HPI Genitourinary Genitourinary: Reports as per HPI Musculoskeletal Musculoskeletal: Reports systems reviewed and no addt'l complaints, except as documented Neurologic Neurologic: Reports systems reviewed and no addt'l complaints, except as documented Psychiatric Psychiatric: Reports systems reviewed and no addt'l complaints, except as documented Endocrine Endocrinology: Reports systems reviewed and no addt'l complaints, except as documented Hematologic/Lymphatic Hematologic/Lymphatic: Reports systems reviewed and no addt'l complaints, except as documented Physical Exam Const alert, oriented x3 and no apparent distress HEENT normocephalic Head and Scalp: atraumatic Eyes EOMs intact bilaterally and conjunctivae normal Neck full ROM, no lymphadenopathy, supple and thyroid normal General: trachea midline Lymph Lymphatic: no lymphadenopathy noted Resp normal respiratory effort, no retractions, no use of accessory muscles and clear to auscultation bilaterally Cardio regular rhythm GI normal to inspection, nondistended, normoactive bowel sounds, soft to palpation, non-distended and no masses Inspection: Negative for abdominal distention Extremity normal to inspection Skin no rashes or lesions noted Psych mental status grossly normal Assessment & Plan (1) PID (acute pelvic inflammatory disease): COMMENT: gcc neg. s/p admission for IVF and IV antibiotics. dc home on flagyl and doxycycline (2) Abdominal pain: PLAN: Plan dc home on antibiotics and anti nausea medicaiton patient declines control. fu in 2-3 weeks as OP Charges/Coding Visit Charges Inpatient E&M: 83469 Disch Hosp
--- NOTE | 2022-06-23 11:59 | DCINST_ITS ---
Discharge Instructions Diet Discharge Diet: No restrictions Activity Discharge Activity: Return to Normal Activity Return to work on:: 06/26/22 May shower in (days): 0 May resume sexual activity in: 1-2 weeks Lifting Restrictions: none Dressing / Incision Call your doctor if you observe: Fever of 101 or Higher, Shortness of breath, Chest pain and Uncontrolled pain Follow Up Care Please Follow Up With: Sonja Verdin MD When: or any [place] women[facility] care provider in 2-3 weeks Test Results: Test results from this visit will be discussed in further detail at your follow- up appointment, if applicable. Discharge Plan Admission Admit Date/Time: 06/22/22 14:49 Primary Reason for Your Visit: PID Attending Provider: Sonja Verdin Primary Care Provider: Care Physician,No Primary Discharge Orders/Prescriptions Prescriptions: New metronidazole 500 mg Tablet 500 mg PO BIDCM 14 Days Qty: 28 0RF doxycycline monohydrate 100 mg Capsule 100 mg PO BID 14 Days Qty: 28 0RF prochlorperazine maleate [Compazine] 10 mg tablet 10 mg PO Q8H PRN (Reason: nausea and vomiting) Qty: 30 0RF No Action epinephrine 0.15 MG syringe 0.15 mg IM X1 Qty: 2 3RF Rx Instructions: Use if child stung by wasp, bee or yellow jacket. Must carry at all times. ondansetron 4 mg tablet,disintegrating 4 mg PO Q6H PRN (Reason: nausea and vomiting) Qty: 10 0RF Referrals / Follow Up: Jamilah Madden MD [Non-Staff] - Care Physician,No Primary [Primary Care Provider] - Disposition Disposition (needs filled in before D/C Order can be placed): Home, Self Care
== END 2022-06-23 13:00 | disposition home or self-care (01) ==
LOC: ED 14:40 → MS3 16:22
PROVIDERS: Surgery; Admitting Provider Obstetrics & Gynecology; Emergency Provider Emergency Medicine; Visit Provider Obstetrics & Gynecology
DX: N73.9 Female pelvic inflammatory disease, unspecified (principal); F17.290 Nicotine dependence, other tobacco product, uncomplicated
CPT/HCPCS: 36415; 74177; 76705; 76830; 80048; 80053; 80076; 81001; 84703; 85025; 87210; 87491; 87591; 96361; 96365; 96366; 96367; 96375; 99218; 99284; J7030; Q9967; A4216; G0378; J2405

== ENCOUNTER → 2022-07-09 | Outpatient (CLI) | payer OTHER, SELFPAY ==
[2022-07-11 21:06] LABS: Chlamydia By Nucleic Acid AMP Negative (Negative)
[2022-07-12 08:59] LABS: Gonococcus By Nucleic Acid AMP Negative (Negative)
== END | disposition home or self-care (01) ==
LOC: LABSPEC 16:31
PROVIDERS: Visit Provider Obstetrics & Gynecology
DX: N73.0 Acute parametritis and pelvic cellulitis (principal)
CPT/HCPCS: 87070; 87205; 87491; 87591

== ENCOUNTER 2025-04-19 09:12 | Emergency (ER) | payer OTHER, SELFPAY ==
[2025-04-19 09:12] VITALS: BP 162/127; PULSE 85; RESP 22; TEMP 36.4; O2SAT 100
--- NOTE | 2025-04-19 10:26 | EX.ED.DYSGE1 ---
HPI History of Present Illness Chief Complaint: Other, Pain/Inj Informant: patient Narrative Narrative: Patient is a 24-year-old female with history of anxiety and diagnosis of shingles to the left side of her face (V1 distribution) last month. She was seen at [place] emergency room on 03/29 and at that time was prescribed oxycodone, valacyclovir and gabapentin for her symptoms. She states she followed up with an eye doctor and [place]. She saw Dr. Tucker (pain management) 1 week ago where she had a nerve block performed. She states that she finished her medications about 3 to 4 days ago and since then she has been having worsening pain. She also notes that over the past 2 days she think she has some new lesions in her left pentecostalism and her left cheek. She has been having some increased irritation of her eyelid. She came in for further evaluation. States she has been sleeping past 2 days because of pain. She has been having some night sweats but denies any fevers. Denies any other rash or lesions. She states she had mono a couple months ago but is not aware of having any history of any immunocompromise state. No other complaints or concerns reported at this time. [facility] Medical History Anxiety Menstrual cycle problem Home Medications ?Medication ?Instructions ?Recorded ?Last Taken ?Type epinephrine 0.15 mg/0.15 mL 0.15 mg (0.15 mL) IM X1 #2 syringes 03/15/14 Unknown Rx auto-injector (for 33 to 66 lb patients) erythromycin 5 mg/gram (0.5 %) eye 1 applic LEFT EYE QHS #3.5 grams 04/19/25 Unknown Rx ointment gabapentin 300 mg capsule 300 mg PO TID 15 days #45 caps 04/19/25 Unknown Rx oxycodone-acetaminophen 5 mg-325 1 tab PO Q6H PRN pain 3 days #12 04/19/25 Unknown Rx mg tablet (Percocet) tabs valacyclovir 1 gram tablet 1,000 mg PO Q8H 7 days #21 tabs 04/19/25 Unknown Rx Allergy/AdvReac Type Severity Reaction Status Date / Time doxycycline Allergy Mild Vomiting Verified 07/09/22 11:34 Family History no significant family his Social History Smoking Status: Current every day smoker tobacco type: e-cigarettes alcohol intake: current substance use type: marijuana caffeine: Yes seatbelt use: always do you feel safe at home: Yes additional social history: single- works at [employer] ROS ED Constitutional Constitutional ED: Reports chills and sweats; Denies fever(s) Eyes Eyes: Reports blurry vision left and other Details: left eye lid swelling ; Denies change in vision Cardiovascular Cardiovascular: Denies chest pain Respiratory/Chest Respiratory/Chest: Denies cough or dyspnea Gastrointestinal Gastrointestinal: Denies abdominal pain, nausea or vomiting Musculoskeletal Musculoskeletal: Denies arthralgias or myalgias Integumentary Reports rash Neurologic Neurologic: Reports headache(s); Denies paresthesias or weakness EXAM Physical Exam Const Vital Signs: 04/19/25 09:12 04/19/25 10:11 Temperature 97.5 F L Temperature Source Temporal Pulse Rate 85 Respiratory Rate 22 H Respiratory Effort Normal Non-Labored Blood Pressure 162/127 H Blood Pressure Mean 138 Pulse Ox 100 Oxygen Delivery Method Room Air Positive well nourished and well developed General Appearance ED: well developed and NAD HEENT Reports TM's clear and moist mucous membranes HEENT Narrative: Normal ear canals. No obvious lesions noted in the left ear canal or on the left external ear. Patient has vesicular/erythematous rash in the V1 distribution with involvement of the pentecostalism, forehead and upper eyelid. Lesions for the most part appear to be crusted over and do not see any fresh tense vesicles. Tympanic Membrane ED: Yes TM's clear Eyes PERRL and EOMs intact bilaterally Eyes Narrative: There is mild swelling of the left upper eyelid and some mild conjunctival injection present. Slit-lamp exam there is no fluorescein uptake. There is no vesicular lesions on the eye. There is just minimal conjunctival injection present. Anterior chambers deep and quiet. Neck no lymphadenopathy and supple Neck Narrative: No nuchal rigidity, normal range of motion of the neck Resp normal respiratory effort and clear to auscultation bilaterally Cardio regular rate and regular rhythm GI normal to inspection, nondistended, normoactive bowel sounds Extremity normal to inspection General Extremety ED: Negative for edema General Extremity: Negative for edema Neuro oriented x3 Sensorium / Orientation: alert Motor Exam: Negative for general weakness Psych Mood & Affect: anxious Skin Skin Narrative: Erythematous slightly vesicular lesions in the V1 distribution of the left face consistent with shingles. No petechiae appreciated. No secondary signs of infection or drainage present. MDM MDM MDM Narrative Medical decision making narrative: Patient evaluated for possible recurrent shingles of the V1 distribution of the left face. Has increased eye irritation but also swelling and lesions on her eyelid. She ran out of her medications a couple days ago she will trigger this. Differential includes recurrent infection, incomplete treatment, immunosuppressive states and herpes ophthalmicus. She is not have any's fever, nuchal rigidity or other rash concerning for disseminated infection. I do not think this is HSV. Given that there is recurrence/worsening we will check some basic labs including CBC, BMP and HIV. These are all largely normal and HIV is nonreactive. Patient is informed of these findings. On slit exam I do not appreciate any herpes ophthalmicus. Patient will be restarted on Percocet, gabapentin and valacyclovir which has previously helped her. Will continue to follow-up with pain management. Is encouraged to follow-up with ophthalmology again either in [place] or will be given local ophthalmology referral. Will be given erythromycin ointment as she states her eye gets very dry and irritated this might help at night. I do not think she has conjunctivitis. Is given a Referral for family doctor she does not have 1. Lab Data Attestation: I reviewed the patient's lab results. Labs: Laboratory Results - last 24 hr 04/19/25 10:30 WBC 8.0 RBC 4.57 Hgb 12.5 Hct 37.8 MCV 82.7 MCH 27.4 MCHC 33.1 RDW Std Deviation 42.3 RDW Coeff of Eugenio 14.5 Plt Count 234 MPV 9.0 Immature Gran % (Auto) 0.500 Neut % (Auto) 71.8 H Lymph % (Auto) 19.2 [place] % (Auto) 5.8 Eos % (Auto) 2.1 Baso % (Auto) 0.6 Absolute Neuts (auto) 5.7 Absolute Lymphs (auto) 1.53 Nucleated RBC % 0 Sodium 139 Potassium 3.8 Chloride 103 Carbon Dioxide 23.2 Anion Gap 12 BUN 8 Creatinine 0.59 L Est GFR (MDRD) Non-Af 130 BUN/Creatinine Ratio 13.6 Glucose 96 Calcium 9.3 HIV 1&2 Antibody Nonreactive Discharge Plan Triage Chief Complaint: Other, Pain/Inj ED Provider: Sheryl Ladd Dx/Rx/DC Orders Clinical Impression: Shingles rash, Pain and swelling of eyelid of left eye Instructions: ED Shingles (Herpes Zoster) Prescriptions: New gabapentin 300 mg capsule 300 mg PO TID 15 Days Qty: 45 0RF oxycodone-acetaminophen [Percocet] 5-325 mg tablet 1 tab PO Q6H PRN (Reason: pain) 3 Days Qty: 12 0RF erythromycin 5 mg/gram (0.5 %) ointment 1 applic LEFT EYE QHS Qty: 3.5 0RF valacyclovir 1 gram tablet 1,000 mg PO Q8H 7 Days Qty: 21 0RF No Action epinephrine 0.15 MG syringe 0.15 mg IM X1 Qty: 2 3RF Rx Instructions: Use if child stung by wasp, bee or yellow jacket. Must carry at all times. Primary Care Provider: Care Physician,No Primary Referrals: Ike Poon MD [Med Staff - Active Staff] - Care Physician,No Primary [Primary Care Provider] - Rudy Lizarraga, GASATERIA ATTENDANT-C [[facility]] - Activity Restrictions/Additional Instructions: Please follow-up with family doctor to establish care. Given referral to [facility] clinic. In addition please follow back up with ophthalmology either the dot compliance manager she saw in [place] or at [place] [facility] (you have been given referral for one today). Print Language: Bots[place] Disposition Disposition: Home, Self Care
[2025-04-19] MEDS: Tetracaine 0.5% Ophthalmic Bottle 1 DRP OPHTHALMIC (10:36)
[2025-04-19 10:45] LABS: Hematocrit 37.8 % (37-47); Hemoglobin 12.5 g/dL (12.0-15.0); Immature Granulocytes Count 0.040 X10^3/uL (0.0-0.0); Mean Corp Hgb Conc 33.1 g/dL (32-36); Mean Corpuscular Volume 82.7 fL (81-99); Mean Platelet Vol. 9.0 fl (6.2-12.0); NRBC Flagged by Analyzer 0 % (0-5); Platelet Count 234 K/mm3 (150-450); RBC Distribution Width CV 14.5 % (11.6-14.6); RBC Distribution Width SD 42.3 fl (35.1-43.9); Red Blood Count 4.57 M/mm3 (4.2-5.4); White Blood Count 8.0 K/mm3 (4.4-11.0)
[2025-04-19 11:31] LABS: Anion Gap 12 (5-15); BUN 8 mg/dL (4-19); BUN/Creat Ratio 13.6 RATIO (10-20); Calcium,Total 9.3 mg/dL (7.6-11.0); Carbon Dioxide 23.2 mmol/L (21.0-32.0); Chloride 103 mmol/L (98-108); Glucose 96 mg/dL (70-99); HIV Nonreactive (Nonreactive); Potassium 3.8 mmol/L (3.3-5.1)
[2025-04-19 13:11] VITALS: BP 104/92; PULSE 71; RESP 16; TEMP 36.4; O2SAT 100
[2025-04-19 13:12] VITALS: BP 104/92
== END 2025-04-19 13:14 | disposition home or self-care (01) ==
PROVIDERS: Emergency Provider Emergency Medicine; Visit Provider Emergency Medicine
DX: B02.39 Other herpes zoster eye disease (principal); F41.9 Anxiety disorder, unspecified; F17.290 Nicotine dependence, other tobacco product, uncomplicated; Z79.899 Other long term (current) drug therapy
CPT/HCPCS: 80048; 85025; 86703; 96374; 99283; A4216